=== PATIENT | male | born 1945 | race Caucasian/White ===

== ENCOUNTER → 2019-08-17 10:26 | Outpatient (CLI) | payer MEDICARE, BC ==
--- NOTE | ~2019-08-17 | EC ---
PATIENT:SHAMA COFFEY DATE OF SERVICE: 08/17/19 SEX: M MEDICAL RECORD: [id number] DATE OF : 49 LOCATION:[facility] AGE OF PATIENT: 74 ADMISSION DATE: 08/17/19 REFERRING PHYSICIAN: INTERPRETING PHYSICIAN: YU KUMAR MD ECHOCARDIOGRAM REPORT ECHO CHARGES 4 ECHO COMPLETE Date: 08/17/19 CLINICAL DIAGNOSIS: NAVARRO/CARDIOMYOPATHY H/O HTN/PACEMAKER PLACEMENT ECHOCARDIOGRAPHIC MEASUREMENTS (adult normal given) AC root (d.<3.7cm) 3.6 cm LV Septum d (<1.2 cm> 1.4 cm Valve Excursion 2.1 cm LV Septum (systole) 1.9 cm Left Atria (s.<4.0cm> 5.2 cm LVPW d(<1.2cm) 1.3 cm RV (d.<2.3cm) 3.3 cm LVPW (sytole) 2.1 cm LV diastole(<5.6CM) 5.3 cm MV E-F(>70mm/sec) cm LV systole 3.4 cm LVOT Diameter 2.2 cm MV exc.(>10mm) cm Est.ejection fraction (50-75%) % DOPPLER: LVIT cm/sec A 66.0 cm/sec E 56.0 cm/sec LA cm/sec RVSP 36.0 mmHg LVOT 79.0 cm/sec AOP1/2T m/s Asc. Ao 114 cm/sec RVOT 54.0 cm/sec RA cm/sec PA 94.0 cm/sec AV Gradient Peak 5.2 mmHg AV Mean 2.7 mmHg AV Area 2.5 cm MV Gradient Peak 2.4 mmHg MV Mean 1.0 mmHg MV Area cm COMMENTS: OP - HC [place] Hand: 1 TONY JILLIAN Health Psychologist: 3 Dr. Conner TAPE# PACS Pericardial Effusion N DATE OF SERVICE: Adequate 2D, color flow imaging, spectral Doppler, and M-Mode LVH is present. LV internal dimensions are normal. Wall motion is normal. EF is greater than or equal to 55%. Aortic valve is tricuspid. No evidence of stenosis by Doppler interrogation. Left atrium is dilated at 5.2 cm. Mitral valve shows no prolapse. Trace MR. Right-sided chambers are grossly normal. Trace TR. Incidental note is made of pacemaker lead in the RV apex. ECHOCARDIOGRAM REPORT [id number] SHAMA COFFEY TRANSINT:[id number] Voice Confirmation ID: [id number] DOCUMENT ID: [id number] YU KUMAR MD CC: [id number] DICTATION DATE: 08/17/19 142 SHRIMP CLEANER: 08/17/19 1454 DEP CLI 08/17/19 [place] [id number] [place] [id number]
== END | disposition home or self-care (01) ==
LOC: D.HCCECHO 10:26
PROVIDERS: ATTEND Internal Medicine Interventional Cardiology
DX: I42.9 Cardiomyopathy, unspecified (principal)

== ENCOUNTER → 2020-09-21 08:17 | Outpatient (CLI) | payer OTHER ==
--- NOTE | 2020-09-23 09:56 | ST ---
PATIENT:SHAMA COFFEY III MEDICAL RECORD: [id number] SEX: M [facility] ORDER #: ADMISSION DATE: 09/21/20 AGE OF PATIENT: 75 REFERRING PHYSICIAN: INTERPRETING PHYSICIAN: YU KUMAR MD DATE OF SERVICE: 09/21/2020 NUCLEAR STRESS TEST GATED: Normal, normal wall motion, normal EF, calculated EF 64%. FINDINGS: SPECT imaging: Short axis view shows good uptake along the anterior wall, lateral wall and inferior wall. Horizontal axis: Horizontal axis confirms good uptake along the anterior wall and inferior wall. Vertical axis: Vertical axis shows good uptake along the lateral wall and septum. FINAL IMPRESSION: 1. Normal gated, normal wall motion, EF 64%. 2. Normal SPECT imaging. RECOMMENDATION: The scan is felt to be low risk for any significant ongoing myocardial ischemia. LV function remains normal. Continued risk factor modification is recommended. TRANSINT:[id number] Voice Confirmation ID: [id number] DOCUMENT ID: [id number] YU KUMAR MD at 0956 CC: [id number] DICTATION DATE: 09/22/20 1142 VERIFICATION MANAGER: 09/22/20 2357 DEP CLI 09/21/20 [facility] [address] [place] [address]
== END | disposition home or self-care (01) ==
LOC: D.HCCARDIO 08:17
PROVIDERS: ATTEND Internal Medicine Interventional Cardiology
DX: I42.9 Cardiomyopathy, unspecified (principal)

== ENCOUNTER 2020-12-14 13:39 | Observation (INO) | payer OTHER ==
[~2020-12-14] VITALS: Ht 180.3 cm; Wt 136.5 kg
[2020-12-14] MEDS ORDERED: LISINOPRIL10 MG PO (14:34)
[2020-12-14] MEDS ORDERED: MULTI-DAY VITAM1 TAB PO (14:35)
[2020-12-14] MEDS ORDERED: VITAMIN D-40010 MCG PO (14:35)
[2020-12-14 15:03] VITALS: BP 147/91; BMI 42.0
[2020-12-14 16:27] LABS: EOSINOPHILS 0.3 % (0-7); HEMATOCRIT 44.4 % (42.0-54.0); HEMOGLOBIN 14.9 g/dL (13.5-17.5); LYMPHOCYTES 5.6 % (15-50); MCH 30.1 pg (26.0-34.0); MCHC 33.5 g/dL (31.0-37.0); MCV 89.7 fL (80.0-100.0); MEAN PLATELET VOLUME 8.1 fL (7.4-10.4); MONOCYTES 1.4 % (2-11); NEUTROPHILS 91.7 % (40-80); PLATELET COUNT 284 10x3/uL (130-400); RBC 4.95 10x6/uL (4.20-6.10); RDW 13.6 % (11.5-14.5); WBC 9.7 10x3/uL (4.8-10.8)
[2020-12-14 16:48] LABS: ALBUMIN 3.9 g/dL (3.4-5.0); ANION GAP 14.2 mmol/L (8-16); BILIRUBIN - TOTAL 0.49 mg/dL (0.2-1.3); CALCIUM 8.9 mg/dL (8.5-10.1); CARBON DIOXIDE 25.4 mmol/L (21.0-32.0); CREATININE - SERUM 1.1 mg/dL (0.6-1.3); MAGNESIUM - SERUM 2.2 mg/dL (1.8-2.4); PHOSPHOROUS 2.9 mg/dL (2.5-4.9); POTASSIUM - SERUM 4.6 mmol/L (3.5-5.1); PROTEIN - SERUM 7.8 g/dL (6.4-8.2)
[2020-12-14 17:31] LABS: CKMB 1.8 U/L (0.0-3.6); CREATINE KINASE 156 UL (21-232)
[2020-12-14 17:44] LABS: TROPONIN-I < 0.017 ng/mL (0.000-0.060)
[2020-12-14 20:17] VITALS: BP 112/86
--- NOTE | 2020-12-14 20:45 | NUR ---
Received patient lying in bed watching TV and alert and oriented x 3. He ask for a pillow and gave him one. He has a patent S/L in left hand. Did note he had a UA specimen in a cup in his room, will get it processed and sent to lab. He denies any pain or discomfort at this time. Call light with in reach at all times. Will continue his plan of care.
[2020-12-14] MEDS ORDERED: TENORMIN25 MG PO (20:56)
[2020-12-14 22:45] LABS: BILIRUBIN NEGATIVE (NEGATIVE); KETONE TRACE mg/dL (< 1+); NITRITE NEGATIVE (NEGATIVE); PH 5.5 (5.0-8.0); UROBILINOGEN NORMAL mg/dL (< 2); WHITE CELLS - URINE 2 HPF (0-1)
[2020-12-14 22:57] LABS: CKMB 1.8 U/L (0.0-3.6); CREATINE KINASE 134 UL (21-232); TROPONIN-I < 0.017 ng/mL (0.000-0.060)
[2020-12-15 01:16] VITALS: BP 129/69
[2020-12-15 02:42] LABS: BASOPHILS 0.5 % (0-2); EOSINOPHILS 0.3 % (0-7); HEMATOCRIT 45.6 % (42.0-54.0); HEMOGLOBIN 15.1 g/dL (13.5-17.5); LYMPHOCYTES 10.6 % (15-50); MCH 29.9 pg (26.0-34.0); MCV 90.5 fL (80.0-100.0); MONOCYTES 7.7 % (2-11); NEUTROPHILS 80.9 % (40-80); PLATELET COUNT 300 10x3/uL (130-400); RBC 5.04 10x6/uL (4.20-6.10); RDW 13.7 % (11.5-14.5); WBC 9.3 10x3/uL (4.8-10.8)
[2020-12-15 03:04] LABS: ALBUMIN 3.7 g/dL (3.4-5.0); ALKALINE PHOSPHATASE 72 U/L (30-120); ALT (SGPT) 25 U/L (10-68); CALC OSMOLALITY 278 mosm/kg (275-300); CALCIUM 8.8 mg/dL (8.5-10.1); CARBON DIOXIDE 27.6 mmol/L (21.0-32.0); CHLORIDE - SERUM 105 mmol/L (98-107); CKMB 1.9 U/L (0.0-3.6); CREATINE KINASE 136 UL (21-232); GLUCOSE 126 mg/dL (74-106); POTASSIUM - SERUM 4.7 mmol/L (3.5-5.1); PROTEIN - SERUM 8.1 g/dL (6.4-8.2); SODIUM 138 mmol/L (136-145); UREA NITROGEN 15 mg/dL (7-18); eGFR NON AFRICAN AMERICAN 78 mL/min (90-120)
[2020-12-15 03:06] LABS: TROPONIN-I < 0.017 ng/mL (0.000-0.060)
[2020-12-15 05:10] VITALS: BP 144/84
--- NOTE | 2020-12-15 06:21 | NUR ---
I have reviewed this patient and I concur with the Shift Assessment completed by the Licensed Practical Nurse today this shift.
[2020-12-15 08:18] VITALS: BP 157/99
--- NOTE | 2020-12-15 08:34 | NUR ---
AAOX4 UPON ENTERING. ADMINISTERED MEDICATION, NO DIFFICULTIES. SITTING IN BEDSIDE CHAIR, DENIES ANY NEEDS AT THIS TIME. WILL CONTINUE POC. ASSESSMENT PERFORMED
[2020-12-15 10:34] VITALS: Ht 180.3 cm; Wt 136.5 kg
[2020-12-15 10:57] VITALS: BP 113/60
--- NOTE | 2020-12-15 11:44 | NUR ---
SIGNED ALL NECESSARY DISCHARGE PAPERWORK AT THIS TIME. REMOVED IV FROM LEFT HAND, CATHETER TIP INTACT. COVERED WITH GAUZE AND TAPE. TOLERATED WELL. DENIES FURTHER NEEDS FROM HOSPITAL/STAFF. HOME WITH FAMILY ONCE THEY ARRIVE.
--- NOTE | 2020-12-16 17:14 | MORECARE ---
CASE MANAGEMENT DISCHARGE SUMMARY PATIENT: SHAMA COFFEY III UNIT: [id number] ADM DATE: 12/14/20 AGE: 75 : 47 SEX: M ROOM/BED: [facility] AUTHOR: JOSIAH CUMMINS PHYSICIAN: REFERRING PHYSICIAN: ANNA PENA DO DATE OF SERVICE: 12/16/20 Case Management Discharge Planning Summary DCP REVIEW SUMMARY ANTICIPATED D/C DATE: EXPECTED LOS : CASE STATUS: DCP Complete INITIAL REVIEW: 12/14/2020 INITIAL REVIEWER: Nicole Givens FINAL DISCHARGE DISPOSITION: : FINAL REVIEWER: FINAL REVIEW DATE: DCP [employer] Questions [employer] Answers QUESTION: ANSWER : PATIENT: SHAMA COFFEY ENCOUNTER: [id number] MEDICAL RECORD#: [id number] ADMISSION DATE: 12/14/2020 DISCHARGE DATE: 12/15/2020 ATTENDING MD: ANNA MARTIN : AGE: 75 MARITAL STATUS: M DC PLAN ID: [id number] FACILITY: [facility] PRINTED ON: 12/16/20 17:14 CT All edits/amendments must be made on the electronic document DICTATION DATE: 12/16/201713 AIRPORT MANAGER: DM 12/16/201713 RPT#: [id number] DC DATE:12/15/20 STATUS: DIS IN [facility] [address] [place] [address] END OF REPORT
== END 2020-12-15 11:45 | disposition home or self-care (01) ==
LOC: D.M2 13:39 → OBSVTIME 13:41 → D.M2 12-15 11:45
PROVIDERS: Emergency Medicine; ADMIT Family Medicine; ATTEND Family Medicine
DX: R91.1 Solitary pulmonary nodule (principal); R06.00 Dyspnea, unspecified; R05 Cough; I10 Essential (primary) hypertension; J44.9 Chronic obstructive pulmonary disease, unspecified; Z95.0 Presence of cardiac pacemaker; Z68.41 Body mass index [BMI] 40.0-44.9, adult; E66.01 Morbid (severe) obesity due to excess calories